=== PATIENT | female | born 1955 | race Caucasian/White ===

== ENCOUNTER → 2017-07-11 | Outpatient (CLI) | payer OTHER ==
[2017-07-11 09:20] LABS: Basophils % (A) 1 %; CH 27.9; CHCM 32.9; Eosinophils # (A) 0.1 k/uL (0-0.7); Eosinophils % (A) 3 %; HCT 40.9 % (34.0-46.0); HDW 2.63; HGB 13.8 gm/dL (11.4-16.0); Luc # (Auto) 0.09; Luc % (Auto) 2; Lymphocytes # (A) 1.1 k/uL (1.0-4.8); Lymphocytes % (A) 25 %; MCH 28.6 pg (25.0-35.0); MCHC 33.7 g/dL (31.0-37.0); MCV 85.1 fL (80.0-100.0); Mean Platelet Volume 6.8; Monocytes # (A) 0.3 k/uL (0-1.0); Monocytes % (A) 6 %; Neutrophils # (A) 2.9 k/uL (1.3-7.7); Neutrophils % (A) 64 %; RBC 4.81 m/uL (3.80-5.40); RDW 14.1 % (11.5-15.5); WBC 4.4 k/uL (3.8-10.6); WBC (Perox) 4.83
[2017-07-11 10:43] LABS: % Iron Saturation 26.4 % (20-50)
== END | disposition home or self-care (01) ==
LOC: LABWHC1 08:39
PROVIDERS: ATTEND Internal Medicine Gastroenterology
DX: D50.9 Iron deficiency anemia, unspecified (principal)
CPT/HCPCS: 36415; 82728; 83540; 83550; 85025

== ENCOUNTER → 2017-07-30 | Outpatient (CLI) | payer OTHER ==
--- NOTE | 2017-08-01 12:20 | MM ---
Reason for exam: screening (asymptomatic). Last mammogram was performed 1 year and 2 months ago. History: Patient is postmenopausal and is nulliparous. Benign core biopsy of the right breast, 1996. Physical Findings: A clinical breast exam by your physician is recommended on an annual basis and results should be correlated with mammographic findings. MG Screening Mammo w CAD Bilateral CC and MLO view(s) were taken. Prior study comparison: May 21, 2016, bilateral MG screening mammo w CAD. May 20, 2014, left breast MG work up mamm w CAD LT. The breast tissue is heterogeneously dense. This may lower the sensitivity of mammography. No suspicious abnormality. No significant changes when compared with prior studies. ASSESSMENT: Negative, BI-RAD 1 RECOMMENDATION: Routine screening mammogram of both breasts in 1 year.
== END | disposition home or self-care (01) ==
LOC: RADMAMWWP 06:51
PROVIDERS: ATTEND Family Medicine
DX: Z12.31 Encounter for screening mammogram for malignant neoplasm of breast (principal)

== ENCOUNTER → 2019-05-12 | Outpatient (CLI) | payer OTHER ==
--- NOTE | 2019-05-13 10:51 | MM ---
Reason for exam: screening (asymptomatic). Last mammogram was performed 1 year and 9 months ago. History: Patient is postmenopausal and is nulliparous. Benign core biopsy of the right breast, 1996. Physical Findings: A clinical breast exam by your physician is recommended on an annual basis and results should be correlated with mammographic findings. MG 3D Screening Mammo W/Cad Bilateral CC and MLO view(s) were taken. Prior study comparison: July 30, 2017, bilateral MG screening mammo w CAD. May 21, 2016, bilateral MG screening mammo w CAD. The breast tissue is heterogeneously dense. This may lower the sensitivity of mammography. No suspicious abnormality on the left. Stable left posterior depth upper outer quadrant focal asymmetry. Right upper outer quadrant distortion at 9 o'clock with 9mm epicenter. ASSESSMENT: Incomplete: need additional imaging evaluation, BI-RAD 0 RECOMMENDATION: Special view mammogram of the right breast. If lesion persists on supplemental views, image directed ultrasound is recommended. [facility] will attempt to contact patient to return for supplemental views and ultrasound if indicated.
== END | disposition home or self-care (01) ==
LOC: RADMAMWWP 06:50
PROVIDERS: ATTEND Family Medicine
DX: Z12.31 Encounter for screening mammogram for malignant neoplasm of breast (principal)
CPT/HCPCS: 77063; 77067

== ENCOUNTER → 2019-05-14 | Outpatient (CLI) | payer OTHER ==
--- NOTE | 2019-05-15 07:47 | MM ---
Reason for exam: additional evaluation requested from abnormal screening. Last mammogram was performed less than 1 month ago. History: Patient is postmenopausal and is nulliparous. Benign core biopsy of the right breast, 1996. Physical Findings: Nurse did not find any significant physical abnormalities on exam. MG 3D Work Up W/Cad RT Spot compression CC, spot compression MLO, and ML view(s) were taken of the right breast. Prior study comparison: May 12, 2019, bilateral MG 3d screening mammo w/cad. July 30, 2017, bilateral MG screening mammo w CAD. The breast tissue is heterogeneously dense. This may lower the sensitivity of mammography. There is chronic nodularity in the right breast. No significant new findings when compared with previous films. These results were verbally communicated with the patient and result sheet given to the patient on 05/14/19. ASSESSMENT: Probably benign, BI-RAD 3 RECOMMENDATION: Follow-up diagnostic mammogram of the right breast in 6 months.
== END | disposition home or self-care (01) ==
LOC: RADMAMWWP 14:50
PROVIDERS: ATTEND Family Medicine
DX: R92.8 Other abnormal and inconclusive findings on diagnostic imaging of breast (principal)
CPT/HCPCS: 77061; 77065

== ENCOUNTER → 2021-02-15 | Outpatient (CLI) | payer OTHER ==
--- NOTE | 2021-02-17 08:10 | BD ---
EXAMINATION TYPE: Axial Bone Density DATE OF EXAM: 02/15/2021 COMPARISON: 09/08/2002 CLINICAL HISTORY: Height: 63.5 IN Weight: 201 LBS RISK FACTORS HISTORY OF: Active: YES Diet low in dairy products/other sources of calcium: YES Postmenopausal woman: AGE 48 Lost more than 2 inches in height since high school: YES 2 1/2 INCHES MEDICATIONS: Additional Medications: CENTRUM MULTI VIT, VIT C, ZINC, SELENIUM, OMEPRAZOLE, CELEBREX, EXAM MEASUREMENTS: Bone mineral densitometry was performed using the [employer]unyu System. Bone mineral density as measured about the Lumbar spine is: ----- L1-L4(G/cm2): 1.457 T Score Values are as follows: ----- L2: 2.1 ----- L3: 2.3 ----- L4: 3.3 ----- L1-L4: 2.3 Bone mineral density has: Decreased -0.1% since study of: 09/08/2002 Bone mineral density about the R hip (g/cm2): 0.879 Bone mineral density about the L hip (g/cm2): 0.931 T Score values are as follows: -----R Neck: -1.1 -----L Neck: -0.8 -----R Total: -1.1 -----L Total: -1.3 Bone mineral density has: Decreased -29.9% since study of: 09/08/2002 IMPRESSION: Osteopenia (T Score between -2.5 and -1). There is slightly increased risk of fracture and the patient may be considered for treatment. Re-Screen 2-5 years. NOTE: T-SCORE=SD OF THE YOUNG ADULT MEAN.
--- NOTE | 2021-02-20 10:47 | MM ---
Reason for exam: screening (asymptomatic). Last mammogram was performed 1 year and 9 months ago. History: Patient is postmenopausal and is nulliparous. Benign core biopsy of the right breast, 1996. Physical Findings: A clinical breast exam by your physician is recommended on an annual basis and results should be correlated with mammographic findings. MG Screening Mammo w CAD Bilateral CC and MLO view(s) were taken. Prior study comparison: May 14, 2019, right breast MG 3d work up w/cad RT. May 12, 2019, bilateral MG 3d screening mammo w/cad. There is chronic nodularity bilaterally. Focal asymmetry left breast. No significant changes when compared with prior studies. ASSESSMENT: Benign, BI-RAD 2 RECOMMENDATION: Routine screening mammogram of both breasts in 1 year.
== END | disposition home or self-care (01) ==
LOC: RADMAMWWP 08:12
PROVIDERS: ATTEND Family Medicine
DX: M85.80 Other specified disorders of bone density and structure, unspecified site (principal)
CPT/HCPCS: 77067; 77080

== ENCOUNTER → 2021-08-30 | Outpatient (CLI) | payer OTHER | END | disposition home or self-care (01) | LOC: LABPAT 11:31 | PROVIDERS: ATTEND Orthopaedic Surgery | DX: Z01.812 Encounter for preprocedural laboratory examination (principal) | CPT/HCPCS: 80053; 81003; 85027; 85610; 85730; 86850; 86900; 86901; 87070 ==

== ENCOUNTER 2021-09-04 10:49 | Day surgery (SDC) | payer OTHER ==
[2021-08-30 12:29] LABS: HCT 39.5 % (34.0-46.0); HGB 13.2 gm/dL (11.4-16.0); MCH 29.2 pg (25.0-35.0); MCHC 33.3 g/dL (31.0-37.0); MCV 87.7 fL (80.0-100.0); Mean Platelet Volume 7.8; Platelet Count 344 k/uL (150-450); RBC 4.51 m/uL (3.80-5.40); RDW 13.4 % (11.5-15.5); WBC 6.6 k/uL (3.8-10.6)
[2021-08-30 12:34] LABS: Appearance,Urine Clear (Clear); Bilirubin,Urine Negative (Negative); Blood,Urine Negative (Negative); Color,Urine Colorless; Glucose,Urine (UA) Negative (Negative); INR 0.9 (<1.2); Ketones,Urine Negative (Negative); Leukocyte Esterase,Urine Negative (Negative); Nitrite,Urine Negative (Negative); PH, Urine 5.5 (5.0-8.0); Partial Thromboplastin Time 26.4 sec (22.0-30.0); Protein,Urine Negative (Negative); Specific Gravity,Urine 1.005 (1.001-1.035); Urobilinogen,Urine <2.0 mg/dL (<2.0)
[2021-08-30 13:01] LABS: ALT 16 U/L (4-34); AST 24 U/L (14-36); African American GFR (CKD) >90 (>60 ml/min/1.73 sqM); Albumin 4.1 g/dL (3.5-5.0); Alkaline Phosphatase 117 U/L (38-126); Anion Gap 7 mmol/L; Blood Urea Nitrogen 14 mg/dL (7-17); Calcium 10.1 mg/dL (8.4-10.2); Carbon Dioxide 27 mmol/L (22-30); Chloride 103 mmol/L (98-107); Glucose 108 mg/dL (74-99); Non-African American GFR(CKD) >90 (>60 ml/min/1.73 sqM); Sodium 137 mmol/L (137-145); Total Bilirubin 0.3 mg/dL (0.2-1.3); Total Protein 6.8 g/dL (6.3-8.2)
[2021-08-31 12:12] VITALS: BMI 32.8
[~2021-09-04 10:49] MED LIST: ACETAMINOPHEN TAB 500 MG TAB PO PRN; DEXAMETHASONE SOD PHOSPHATE 4 MG/ML 1 ML VIAL IV ONE; HYDROmorphone 0.5 MG/0.5 ML SYRINGE IVP PRN; LIDOCAINE 1% (10MG/ML) FOR IV START INTRADERMA PRN; MELOXICAM 7.5 MG TAB PO PRN; METOCLOPRAMIDE 5 MG/ML 2 ML VIAL IVP PRN; ONDANSETRON 4 MG/2 ML VIAL IVP ONE; ONDANSETRON 4 MG/2 ML VIAL IVP PRN; TRANEXAMIC ACID 1,000 MG in SODIUM CHLORIDE 0.9% 100 ML IVPB PRN
[2021-09-04] MEDS ORDERED: LACTATED RINGERS 1,000 ML IV ONE ×2 (11:12→13:51)
[2021-09-04] MEDS ORDERED: SCOPOLAMINE 1.5MG/72HR PATCH TRANSDERM ONE (12:08)
[2021-09-04] MEDS ORDERED: PHENYLEPHRINE-0.9% NACL SYG 1,000 MCG/10 ML SYRINGE ONE (12:36)
[2021-09-04] MEDS ORDERED: PROPOFOL 10 MG/ML 20 ML VIAL IV ONE (12:36)
[2021-09-04] MEDS ORDERED: TRANEXAMIC ACID 1,000 MG/10 ML VIAL ONE (12:36)
[2021-09-04] MEDS ORDERED: fentaNYL (PF) 50 MCG/ML 2 ML AMP ONE (12:36)
[2021-09-04] MEDS ORDERED: MIDAZOLAM 2 MG/2 ML VIAL ONE (12:36)
[2021-09-04] MEDS ORDERED: diphenhydrAMINE 50 MG/ML 1 ML VIAL ONE (12:36)
[2021-09-04] MEDS ORDERED: SODIUM CHLORIDE 0.9% 100 ML BAG ONE (12:36)
[2021-09-04] MEDS ORDERED: ceFAZolin 1,000 MG in SODIUM CHLORIDE 0.9% 1,000 ML IRRIGATION ONE (12:40)
--- NOTE | 2021-09-04 12:52 | P.OP ---
Date of Procedure: 09/04/21 Procedure(s) Performed: PREOPERATIVE DIAGNOSIS: Right hip severe osteoarthritis POSTOPERATIVE DIAGNOSIS: Right hip severe osteoarthritis OPERATION: Right hip total replacement arthroplasty (uncemented implantation with metal on polyethylene articulation). ANESTHESIA: Spinal ESTIMATED BLOOD LOSS: 200 ml. BUCKRAM SEWER: Brielle Parry PA-C (assistance with: patient positioning, retraction, exposure, hemostasis, leg positioning, implantation, irrigation, closure, dressing) COMPLICATIONS: None apparent. COMPONENTS IMPLANTED: Mg continuum acetabular cup with cluster holes; continuum longevity 15 elevated liner, 32 mm id; Mg VerSys Fiber Metal stem; VerSys 32 mm femoral head with +7 mm neck length extension INDICATIONS: Mrs. Wong is a 65 year old female with significant end-stage osteoarthritis involving the right hip and commensurate severe symptoms. She presents to the operating room today for total hip replacement. I have discussed the steps of the operation as well as potential risks and complications as being inclusive of, but not limited to: Leading, infection, scarring, discomfort, or vessel and/or nerve damage, need for further surgery, loosening, dislocation, wear, osteolysis, limb length inequality, fracture, blood clot, pulmonary embolism, , persistent limp, and other risks. The patient is aware these risks and wishes to proceed with surgery and has signed a consent form. PROCEDURE: After appropriate consent was obtained, the patient was taken to the operating room and placed in supine position. Spinal anesthetic was administered and after confirmation of adequate anesthesia, the patient was placed into the lateral decubitus position with the right side up. Care was taken to make sure that all pressure points were adequately padded and he was stabilized to the table with a Tomi hip positioner. The right hip was prepped and draped in th e usual aseptic fashion using a combination of ChloraPrep and alcohol. Ioban drape was used for the case and the patient received intravenous antibiotics prior to the incision. "Time out" was called, confirming patient identity, side, procedure, availability of implants and administration of antibiotics and tranexamic acid. The incision was created directly over the greater trochanter and carried slightly posteriorly for a posterior approach to the hip. The incision was then deepened down to subcutaneous tissue and fascia jyason. Fascia jayson was split in line with the incision and split proximally along the fibers of the gluteus bayron. The underlying fibers of the muscle were teased apart using finger dissection and bleeding vessels were picked up and coagulated. Retractor was then placed posteriorly consisting of a blunt Kimberly. The short external rotators and capsule were exposed using good visualization of the attachment of the external rotators to the femur was established. The short external rotators and capsule were released using electrocautery from their femoral attachments. A hockey stick shaped incision was created in the capsule. Joint fluid was evacuated and the patient's hip was able to be dislocated fairly easily. The patient's femoral head was severely arthritic with eburnated bone present and a 360 degrees hills of osteophytes. The femoral neck cut was created approximately 1 cm superior to the lesser trochanter using a reciprocating saw. The femoral head and neck fragment was removed and attention was then directed to the acetabulum. An anterior acetabular retractor was applied followed by posterior retraction of the capsule with a Meyerding retractor. This afforded good visualization into the acetabular cavity. Soft tissue was removed and residual cartilage within the acetabular vault was removed using a curette. Labrum was removed using a long-handled knife. Attention was then directed to reaming. The size 44 reamer was used first, followed by increasing increments until the final size reamer was used. Please see the implantation sheet for exact sizes used for the components. Once the final reamer had been utilized to expand the socket it was noted that there was a good supportive bone around the acetabular socket and no further reaming needed to be performed. The trial the same size as the last reamer used was then impacted into the acetabular vault and found to have good fit. The acetabular component, one size (2mm) greater than the trial was then called for. The cluster holes were placed posteriorly and the component was imp acted in a position of approximately 40 degrees abduction and 20 degrees anteversion. This matched this patient's jackson anteversion and it was noted that the cup had excellent stability without need for additional screw fixation. Attention was then directed to the acetabular liner. The anteversion and abduction angle of the component was noted to be very good. A 15 elevated liner was used and locked into position with the elevation posterior superior. Osteophytes around the posterior and inferior aspect of the acetabulum were trimmed as necessary to prevent any impingement. Attention was then directed back to the proximal femur. Retractors were placed around the proximal femur and box osteotome was used followed by canal finder and trochanteric reamer. Cylindrical reaming was performed. Progressive broaching was then performed starting with a #10 broach and progressing final size, in a position of 15 degrees anteversion. [place] anteversion was within 5 degrees of stem position. The final size broach had excellent fit and fill of the patient's metaphysis and diaphysis. Trial reduction was then performed starting with size 32 mm femoral head and various neck combination of stability, limb length equality, and soft tissue tension. Trial components were then removed. The canal was lavaged and the final size femoral stem component was impacted into position. The implant fit very well and had excellent stability. The femoral head was then impacted onto the Schultz taper. Blood and debris were removed from the acetabular component and the hip was then reduced and checked for stability, limb length and soft tissue tension. These parameters found to be satisfactory, the wound was then thoroughly irrigated with normal saline. Final hemostasis was obtained using electrocautery and IV tranexamic acid, 1 g given at the time of prepping and draping, and another 1 g given at the time of closure. Local anesthetic solution consisting of ropivacaine with epinephrine, clonidine, and ketorolac was also used throughout the case targeting the capsule, fascia, and skin. Closure of the capsule was performed meticulously using #3 Vicryl suture. Four [id number] sutures were placed in the posterior capsule along with repair of the external rotators. The fascia jayson was then repaired using combination of #3 Vicryl suture in interrupted fashion and Quill and running fashion. 2-0 Vicryl suture was used for the subcutaneous tissues and 3-0 Quill for the skin. Dermabond or Steri-Strips were then applied. The patient tolerated the procedure well. There were no complications and the wound bed was dry and there was no need for drain placement. Sterile dressing was then applied and the patient was carefully removed from the operating room table, placed on the stretcher and was taken to the recovery room in stable condition. Sponge and needle counts were correct.
[2021-09-04] MEDS: ROPIVACAINE/EPI/CLONIDINE/KET 50 ML SYRINGE MISCELLANE PRN ×2 (13:21→14:01)
[2021-09-04] MEDS ORDERED: NALOXONE 0.4 MG/ML 1 ML VIAL IV PRN (14:43)
[2021-09-04] MEDS ORDERED: HYDROmorphone 1 MG/ML 1 ML SYRINGE IVP PRN (14:43)
[2021-09-04] MEDS ORDERED: TEMAZEPAM 15 MG CAP PO PRN (14:43)
[2021-09-04] MEDS ORDERED: HYDROmorphone 0.5 MG/0.5 ML SYRINGE IVP PRN (14:43)
[2021-09-04] MEDS ORDERED: ONDANSETRON 4 MG/2 ML VIAL IVP PRN (14:43)
[2021-09-04] MEDS ORDERED: MAGNESIUM HYDROXIDE 2,400 MG/10 ML CUP PO PRN (14:43)
--- NOTE | 2021-09-04 15:43 | XR ---
Limited right hip HISTORY: Postop right hip arthroplasty Single frontal view of the right hip Patient is status post right hip arthroplasty, there is anatomic alignment. Lucency is present within the soft tissues. IMPRESSION: Orthopedic follow-up.
[2021-09-04] MEDS: LACTATED RINGERS 1,000 ML IV SCH (16:03)
[2021-09-04] MEDS: HYDROcodone/APAP 7.5-325MG 1 EACH TAB PO PRN ×2 (17:13→23:34)
[2021-09-04] MEDS ORDERED: SENNOSIDES-DOCUSATE SODIUM 1 EACH TAB PO SCH (21:00)
[2021-09-04] MEDS: ASPIRIN 81 MG PO SCH (21:18)
[2021-09-05 02:16] VITALS: TEMP 97.9
[2021-09-05] MEDS: HYDROcodone/APAP 7.5-325MG 1 EACH TAB PO PRN (06:15)
[2021-09-05 07:44] VITALS: BP 100/63; PULSE 59; RESP 16
[2021-09-05] MEDS: ASPIRIN 81 MG PO SCH (08:05)
[2021-09-05] MEDS: LACTATED RINGERS 1,000 ML IV SCH (08:25)
[2021-09-05] MEDS ORDERED: MELOXICAM 7.5 MG TAB PO SCH (09:00)
--- NOTE | 2021-09-05 09:06 | P.DS ---
Providers Expected date of discharge: 09/05/21 Attending physician: Geoffrey Bennett Consults: 09/04/21 14:43 Consult Physician Routine Consulting Provider: Ric Hernandez Consult Reason/Comments: Medical management Do you want consulting provider notified?: Yes Primary care physician: Ric Hernandez - Discharge Diagnosis(es) (1) Osteoarthritis of right hip Current Visit: Yes Status: Acute (2) S/P total hip arthroplasty Current Visit: Yes Status: Acute Hospital Course: This is a 65-year-old female with known history of degenerative arthritis of the right hip. The patient presented for evaluation as an outpatient. After discussion and consideration patient elects to proceed with total hip arthroplasty. The patient is seen preoperatively by Dr. Bennett and medically cleared for surgery by their primary care physician. Patient is admitted to [facility] on 09/04/2021 for total hip arthroplasty. The procedure is performed without complication or sequelae. The patient is doing well postoperatively. Labs and vital signs are stable on day of discharge. On day of discharge patient's hip incision is healing well. There is minimal erythema. There is no drainage noted at this time. There is minimal soft tissue swelling to the hip and thigh. Patient has full foot and ankle motion without difficulty or pain. Calf is soft and nontender to palpation. Neurovascular status to the right lower extremity is intact. Patient is discharged home in good condition. Please see med rec for accurate list of home medications. Plan - Discharge Summary Discharge Rx Participant: No New Discharge Prescriptions: New Meloxicam [Mobic] 1 - 2 tab PO DAILY PRN #60 tab PRN Reason: Pain Sennosides-Docusate Sodium [Senokot-S] 1 tab PO BID #60 tablet Aspirin [Adult Low Dose Aspirin EC] 81 mg PO BID #1 tab Gabapentin [Neurontin] 300 mg PO BID 5 Days #10 cap HYDROcodone/APAP 7.5-325MG [[place] 7.5-325] 1 - 2 tab PO Q6HR PRN #42 tab PRN Reason: Pain Ondansetron Odt [Zofran Odt] 4 mg PO Q8HR PRN #14 tab PRN Reason: Nausea Continue Omeprazole 20 mg PO DAILY Acetaminophen [Tylenol Extra Strength] 1,000 mg PO BID PRN PRN Reason: Pain Discharge Medication List Acetaminophen [Tylenol Extra Strength] 1,000 mg PO BID PRN 08/31/21 [History] Omeprazole 20 mg PO DAILY 08/31/21 [History] Aspirin [Adult Low Dose Aspirin EC] 81 mg PO BID #1 tab 09/04/21 [Rx] Gabapentin [Neurontin] 300 mg PO BID 5 Days #10 cap 09/04/21 [Rx] HYDROcodone/APAP 7.5-325MG [[place] 7.5-325] 1 - 2 tab PO Q6HR PRN #42 tab 09/04/21 [Rx] Meloxicam [Mobic] 1 - 2 tab PO DAILY PRN #60 tab 09/04/21 [Rx] Ondansetron Odt [Zofran Odt] 4 mg PO Q8HR PRN #14 tab 09/04/21 [Rx] Sennosides-Docusate Sodium [Senokot-S] 1 tab PO BID #60 tablet 09/04/21 [Rx] Follow up Appointment(s)/Referral(s): Brielle Parry, PAC [PHYSICIAN SEAMAN OFFICER] - 2 Weeks Patient Instructions/Handouts: Scopolamine (Absorbed through the skin) Activity/Diet/Wound Care/Special Instructions: Toe touch wt bearing w walker. Keep Optifoam dressing intact 7-10 days. May shower 48h post op. Discharge Disposition: HOME WITH HOME HEALTH SERVICES
[2021-09-05 09:25] LABS: Basophils # (A) 0.02 X 10*3/uL (0.00-0.10); Basophils % (A) 0.2 %; Eosinophils # (A) 0.01 X 10*3/uL (0.04-0.35); Eosinophils % (A) 0.1 %; HCT 34.8 % (37.2-46.3); HGB 11.1 g/dL (12.0-15.0); Lymphocytes # (A) 1.15 X 10*3/uL (0.90-5.00); Lymphocytes % (A) 11.6 %; MCH 28.1 pg (27.0-32.0); MCHC 31.9 g/dL (32.0-37.0); MCV 88.1 fL (80.0-97.0); Mean Platelet Volume 10.7 fL (9.5-12.2); Monocytes # (A) 0.81 X 10*3/uL (0.20-1.00); Monocytes % (A) 8.2 %; Neutrophils # (A) 7.85 X 10*3/uL (1.80-7.70); Neutrophils % (A) 79.5 %; Platelet Count 320 X 10*3/uL (140-440); RBC 3.95 X 10*6/uL (4.10-5.20); RDW 13.4 % (11.5-14.5); WBC 9.88 X 10*3/uL (4.50-10.00)
--- NOTE | 2021-09-05 17:59 | P.CON ---
Consult Note - . Consult date: 09/05/21 Assessment/Plan:: Medical Consult: Medical management HPI: 65 -year-old female s/p day one right total hip arthroplasty. She significant medical history of degenerative arthritis of the right hip, lumbar degenerative disc disease, lumbar degenerative scoliosis, lumbar spondylosis, gerd/reflux. she was seen and examined at bedside, resting with no acute signs of distress. she endorse mild discomfort over the surgical incision. she denies fever, chills, shortness of breath, chest pain, palpations, abdominal pain, nausea, vomiting, or diarrhea. Physical exam: General: cooperative, no acute signs of distress heent: Normocephalic, nontraumatic PERRLA, supple, trachea midline Respiratory: Even and unlabored respirations, lung sounds clear equal bilateral anterior-posterior Cardiac: S1 and S2 regular no murmurs no clicks no rubs noted Abdomen: Soft nontender bowel sounds active in all 4 quadrants Musculoskeletal: Equal strength in all upper and lower extremities Skin: Corry warm and dry, surgical incision dressing well intact over right lateral hip area Psychiatric: Alert and oriented 4 cooperative Assessment: Status post right hip arthroplasty GERD/reflux History of degenerative arthritis of right hip Lumbar degenerative disc disease Lumbar spondylosis GERD/reflux Plan: Review diagnostic labs and diagnostic testing Continue home medications Okay for discharge from a medical standpoint
== END 2021-09-05 11:09 | disposition home health service (06) ==
LOC: OR 10:49 → 4SSUR 15:37 → OR 09-05 11:09
PROVIDERS: ATTEND Orthopaedic Surgery
DX: M16.11 Unilateral primary osteoarthritis, right hip (principal); M19.90 Unspecified osteoarthritis, unspecified site; Z79.899 Other long term (current) drug therapy; Z88.0 Allergy status to penicillin; Z88.8 Allergy status to other drugs, medicaments and biological substances; Z20.822 Contact with and (suspected) exposure to COVID-19
CPT/HCPCS: 27130; 97161; 97535; 97165; 86900; 86901; 80053; 85025; 85027; 85610; 85730; 86850; 81003; 88300; 87070; 87635; 73501; C1776; J2250; J1200; J1100; J0690 ×3; J2405; J3010; J2370; J2704

== ENCOUNTER → 2023-10-08 | Outpatient (CLI) | payer MEDICARE ==
[2023-10-08 10:50] LABS: Basophils # (A) 0.02 X 10*3/uL (0.00-0.10); Basophils % (A) 0.4 %; Eosinophils # (A) 0.13 X 10*3/uL (0.04-0.35); Eosinophils % (A) 2.5 %; HGB 13.5 d/dL (12.0-15.0); Lymphocytes # (A) 1.13 X 10*3/uL (0.90-5.00); MCH 26.6 pg (27.0-32.0); MCHC 31.4 d/dL (32.0-37.0); MCV 84.8 FL (80.0-97.0); Mean Platelet Volume 11.1 FL (9.5-12.2); Monocytes % (A) 7.8 %; NRBC Per 100 WBC 0 X 10*3/uL (0.00-0.01); Neutrophils # (A) 3.45 X 10*3/uL (1.80-7.70); Neutrophils % (A) 67.1 %; Platelet Count 328 X 10*3/uL (140-440); RBC 5.07 X 10*6/uL (4.10-5.20); RDW 15.6 % (11.5-14.5); WBC 5.14 X 10*3/uL (4.50-10.00)
[2023-10-08 11:42] LABS: ALT 14 U/L (8-44); AST 20 U/L (13-35); Albumin 4.5 d/dL (3.8-4.9); Albumin/Globulin Ratio 1.88 Ratio (1.60-3.17); Alkaline Phosphatase 105 U/L (41-126); Blood Urea Nitrogen 12.4 mg/dL (9.0-27.0); Calcium 10.4 mg/dL (8.7-10.3); Chloride 103 mmol/L (96-109); Chol/HDL Ratio 2.42 Ratio; Globulin 2.4 d/dL (1.6-3.3); Glucose 94 mg/dL (70-110); LDL Cholesterol,Calculated 107.4 mg/dL (0.0-131.0); Sodium 141 mmol/L (135-145); T4, Free (Free Thyroxine) 1.43 ng/dL (0.80-1.80); Total Bilirubin 0.3 mg/dL (0.3-1.2); Total Protein 6.9 d/dL (6.2-8.2); VLDL Calculation 15.98 mg/dL (5.00-40.00)
== END | disposition home or self-care (01) ==
LOC: LABWHC1 07:13
PROVIDERS: ATTEND Family Medicine
DX: E78.5 Hyperlipidemia, unspecified (principal)
CPT/HCPCS: 36415; 80053; 80061; 84439; 84443; 84481; 85025

== ENCOUNTER → 2024-04-17 | Outpatient (CLI) | payer MEDICARE ==
--- NOTE | 2024-04-17 14:52 | P.GSCN ---
History of Present Illness Consult date: 04/17/24 Reason for Consult: abnormal right breast radiograph Requesting physician: Ric Hernandez History of present illness: Jose David is a 68 year old female seen in consultation for DR. Ric Hernandez regarding a radiographic abnormality in the right breast. She had a bilateral mammogram on 12-19-23 which led to an ultrasound of the right breast on 12-30-23, and on 02-28-24 diagnostic right breast mammogram BIRAD 3. She is recommended to have bilateral mammogram in 6 months. She is status post right breast biopsy in 1996 which was benign. She does not feel any new lumps masses or nodules of concern in either breast. She has not had any recent trauma or infection in the breast. She is not complaining of any nipple discharge or skin changes. Caffeine: diet coke several day nicotine: none chocolate: occasional BCP: none hormones: none Family HIstory: father: nonhodgkins lymphoma paternal grandfather: lungs cancer Hormonal History: menarche: 13 G0 menopause: 48 hormones: none Surgical history: Bilateral knee replacement Right hip replacement Right shoulder surgery Right breast biopsy Medical history: Negative Social history: Nicotine: Negative Alcohol: Negative Drugs: Negative Review of Systems - Constitutional Reports sweats, Denies fever, Denies weight loss - EENT Eyes: denies blurred vision Ears: deny: decreased hearing, tinnitus Ears, nose, mouth and throat: Denies dysphagia - Breasts bilateral: as per HPI - Cardiovascular Denies chest pain, Denies shortness of breath - Respiratory Denies cough, Denies 7 - Gastrointestinal Reports as per HPI - Genitourinary Genitourinary: Denies dysuria, Denies hematuria Menstruation: Reports postmenopausal - Musculoskeletal Reports as per HPI - Integumentary Denies rash, Denies unusual bruising - Neurological Denies headaches, Denies syncope - Psychiatric Reports as per HPI - Endocrine Reports as per HPI - Hematologic/Lymphatic Reports as per HPI - Allergic/Immunologic Reports seasonal allergies Past Medical History Past Medical History: GERD/Reflux, Osteoarthritis (OA) History of Any Multi-Drug Resistant Organisms: None Reported Past Surgical History: Joint Replacement, Orthopedic Surgery Additional Past Surgical History / Comment(s): RT TKA. LT KNEE SX. RT ROTATOR CUFF REPAIR. COLONOSCOPY Past Anesthesia/Blood Transfusion Reactions: Previous Problems w/ Anesthesia, Postoperative Nausea & Vomiting (PONV) Additional Past Anesthesia/Blood Transfusion Reaction / Comm: SLOW TO WAKE UP FROM ANESTHESIA Past Psychological History: No Psychological Hx Reported Smoking Status: Never smoker Past Alcohol Use History: None Reported Past Drug Use History: None Reported - Past Family History Father Family Medical History: Cancer Medications and Allergies Home Medications Medication Instructions Recorded Confirmed Type Acetaminophen [Tylenol Extra 1,000 mg PO BID PRN 08/31/21 08/31/21 History Strength] Omeprazole 20 mg PO DAILY 08/31/21 08/31/21 History Aspirin [Adult Low Dose Aspirin EC] 81 mg PO BID #1 tab 09/04/21 Rx Gabapentin [Neurontin] 300 mg PO BID 5 Days #10 cap 09/04/21 Rx HYDROcodone/APAP 7.5-325MG [[place] 1 - 2 tab PO Q6HR PRN #42 tab 09/04/21 Rx 7.5-325] Meloxicam [Mobic] 1 - 2 tab PO DAILY PRN #60 tab 09/04/21 Rx Ondansetron Odt [Zofran Odt] 4 mg PO Q8HR PRN #14 tab 09/04/21 Rx Sennosides-Docusate Sodium 1 tab PO BID #60 tablet 09/04/21 Rx [Senokot-S] Allergies Allergy/AdvReac Type Severity Reaction Status Date / Time Penicillins Allergy Rash/Hives Verified 08/31/21 12:03 Surgical - Exam - General no distress - Eyes normal ocular movement - Neck trachea midline - Respiratory normal respiratory effort, clear to auscultation - Cardiovascular Rhythm: regular Heart Sounds: normal: S1, S2 - Integumentary normal turgor - Neurologic no disoriented, no combative - Musculoskeletal normal gait - Psychiatric oriented to time, oriented to person, oriented to place, speech is normal, memory intact Breast Exam: BRA: 44DD Inspection: Bilateral grade 3 ptosis Palpation: Right breast: Multi positional exam fibrocystic changes no dominant masses or nodules of concern Right axilla: No adenopathy of concern Left breast: Multi positional exam no dominant masses or nodules of concern Left axilla: No adenopathy of concern There is a dark nevus on the right breast in the upper inner aspect of the breast Results After review of the radiographs recommend repeat bilateral mammogram in 6 months Assessment and Plan Assessment: Impression: Fibrocystic breast changes Macromastia with bilateral shoulder notching and back pain Dark nevus right breast upper inner aspect Abnormal right breast mammogram Plan: Repeat bilateral mammogram in 6 months with appointment at that time Excision of dark nevus right breast in the office Patient is going to consider bilateral breast reduction secondary to the macromastia CC: Dr. Ric Hernandez
[2024-04-17 15:18] VITALS: BP 155/88; PULSE 78; RESP 17; TEMP 97.9
== END ==
LOC: WWCWWP 13:47
PROVIDERS: ATTEND Surgery
DX: R92.8 Other abnormal and inconclusive findings on diagnostic imaging of breast (principal); N60.11 Diffuse cystic mastopathy of right breast; N62 Hypertrophy of breast; D22.5 Melanocytic nevi of trunk; M54.9 Dorsalgia, unspecified; Z88.0 Allergy status to penicillin

== ENCOUNTER → 2024-04-17 | Outpatient (CLI) | payer MEDICARE ==
--- NOTE | 2024-04-17 20:38 | USB ---
Reason for Exam: Additional evaluation requested from prior study. Patient History: Menarche at age 13. Patient has no children. Postmenopausal. 1996, Benign Core Biopsy on the right side. Risk Values: Tashia 5 year model risk: 2.2%. NCI Lifetime model risk: 7.6%. Technique: Method: Whole Breast Handheld. Prior Study Comparison: 05/14/2019 Right Diagnostic Mammogram, [facility]. 02/15/2021 Bilateral Screening Mammogram, [facility]. 04/23/2022 Bilateral MG screening mammo w CAD, [facility]. Findings: The whole breast of the right breast, the axilla of the right breast and the retroareolar of the right breast were scanned. A complete US of all four quadrants of the breast common axilla, and retro-areolar region were reviewed. At the 2:00 position, 12 cm from the nipple, there is a hypoechoic, slightly irregular shadowing lesion measuring 7 x 6 x 5 mm. This is suspicious and tissue sampling is recommended. No other solid or cystic lesion or axillary lymphadenopathy. Overall Assessment: Suspicious, BI-RAD 4 Management: Ultrasound Core Biopsy of the right breast. 2:00, mammographic correlate Results were given to the patient verbally at the time of exam. Electronically signed and approved by: Lauro Calloway M.D. Radiologist
== END | disposition home or self-care (01) ==
LOC: RADUSWWP 15:08
PROVIDERS: ATTEND Surgery
DX: R92.8 Other abnormal and inconclusive findings on diagnostic imaging of breast (principal); Z78.0 Asymptomatic menopausal state

== ENCOUNTER → 2024-04-29 | Day surgery (SDC) | payer MEDICARE ==
--- NOTE | 2024-05-04 13:43 | MM ---
Reason for Exam: Post Procedure Mammogram. Last mammogram was performed 2 year(s) and 0 month(s) ago. Patient History: Menarche at age 13. Patient has no children. Postmenopausal. 1996, Benign Core Biopsy on the right side. Risk Values: Tashia 5 year model risk: 2.2%. NCI Lifetime model risk: 7.6%. Prior Study Comparison: 05/14/2019 Right Diagnostic Mammogram, [facility]. 02/15/2021 Bilateral Screening Mammogram, [facility]. 04/23/2022 Bilateral MG screening mammo w CAD, [facility]. Tissue Density: Right: The breasts are heterogeneously dense, which may obscure small masses. Pathology Description: Location: 2 o'clock. Marker Left Behind. Needle Type: Mammotome Cores: 4 Skin Nicks: 1 Gauge: 13 The procedure of ultrasound guided core biopsy was explained to the patient. Benefits, alternatives, and risks were discussed. An informed consent was then obtained. A timeout was performed. The patient was placed in supine positioning for imaging and for the procedure. The overlying skin was prepped and draped in usual sterile fashion. Lidocaine was used as anesthetic into the skin and subcutaneous tissue up to area of concern in the right breast. A small skin stephanie was made with surgical scalpel. Under ultrasound guidance, a 12-gauge vacuum assisted biopsy gun device was used to obtain 4 core samples. A biopsy clip was left in lesion. Hydromark coil core marker was placed. The patient tolerated the procedure well without any immediate complication. The patient was kept in the radiology department for short stay after the procedure and then discharged home in stable condition. Postprocedure mammogram: The patient was transferred to mammography for physician ordered post procedure mammogram for clip placement verification. Core marker is within the upper inner aspect right breast Impression: Successful ultrasound guided core biopsy of area of concern in the right breast, full pathology results to follow. Recommendations: 1. Recommendations are pending pathology results. Pathology Results: Result: Benign, Fibroadenoma. RIGHT BREAST, TWO O'CLOCK, ULTRASOUND GUIDED NEEDLE CORE BIOPSY: Fibroadenoma. Overall Assessment: Benign Assessment: MG diagnostic mammo RT wo CAD - Right: Benign, BI-RAD 2. Management: Diagnostic Mammogram of the right breast in 6 months. Electronically signed and approved by: Danish Gay D.O. Radiologis
== END ==
LOC: RADUSWWP 07:40
PROVIDERS: ATTEND Surgery
DX: D24.1 Benign neoplasm of right breast (principal); R92.8 Other abnormal and inconclusive findings on diagnostic imaging of breast; Z78.0 Asymptomatic menopausal state
CPT/HCPCS: 88305; 77065; 19083; A4648

== ENCOUNTER → 2024-05-14 | Outpatient (CLI) | payer MEDICARE ==
--- NOTE | 2024-05-14 14:56 | P.PN ---
Subjective Progress Note Date: 05/14/24 Principal diagnosis: fibroadenoma Jose David is a 68 year old female status post an ultrasound area of concern on 04-29-24 in the right breast. Pathology was consistent with a fibroadenoma felt to be benign concordant. She tolerated the porcedure without difficulty. Objective - Constitutional General appearance: Present: cooperative - EENT Eyes: Present: EOMI ENT: Present: hearing grossly normal - Neck Neck: Present: normal ROM - Respiratory Respiratory: bilateral: CTA - Cardiovascular Heart sounds: normal: S1, S2 - Psychiatric Psychiatric: Present: A&O x's 3, appropriate affect, intact judgment & insight - Additional findings Additional findings: Biopsy site right breast clean and dry, no evidence of hematoma or infection Assessment and Plan Assessment: Impression: right breast radiographic abnormality biopsy as per ultrasound-guided core biopsy benign concordant fibroadenoma On right breast diagnostic mammogram from 04-29-2024 her Tashia 5-year risk is 2.2% we have discussed chemoprophylaxis and at this time she has declined Plan: Repeat right breast mammogram and ultrasound in 6 months exam at that time If patient notes anything of concern she will follow-up sooner. CC: Dr. Ric Hernandez
[2024-05-14 15:01] VITALS: BP 151/78; PULSE 92; RESP 17; TEMP 98.1
== END ==
LOC: WWCWWP 14:39
PROVIDERS: ATTEND Surgery
DX: R92.8 Other abnormal and inconclusive findings on diagnostic imaging of breast (principal); D24.1 Benign neoplasm of right breast; Z88.0 Allergy status to penicillin

== ENCOUNTER → 2024-10-05 | Outpatient (CLI) | payer MEDICARE ==
--- NOTE | 2024-10-05 08:25 | MM ---
Reason for Exam: Follow-up at short interval from prior study. Last mammogram was performed 2 year(s) and 6 month(s) ago. Patient History: Menarche at age 13. Patient has no children. Postmenopausal. 04/29/2024, Benign US biopsy breast VAD RT on the right side. 1996, Benign Core Biopsy on the right side. Risk Values: Tashia 5 year model risk: 2.8%. NCI Lifetime model risk: 9.5%. Prior Study Comparison: 02/15/2021 Bilateral Screening Mammogram, [facility]. 04/23/2022 Bilateral MG screening mammo w CAD, [facility]. 04/29/2024 Right MG diagnostic mammo RT wo CAD, [facility]. Tissue Density: Right: The breasts are heterogeneously dense, which may obscure small masses. Findings: Analyzed By CAD. Pattern is stable there is chronic nodularity within the right breast. This is unchanged in appearance. Core marker is within one of the chronic nodules. No suspicious groups of microcalcifications, spiculated or lobular masses, architectural distortion or other secondary signs of malignancy are mammographically apparent. Overall Assessment: Benign, BI-RAD 2 Management: Screening Mammogram of both breasts in 3 months. A negative mammogram report should not preclude additional follow up of suspicious palpable abnormalities. Patient should continue monthly self breast exam. A clinical breast exam by your physician is recommended on an annual basis and results should be correlated with mammographic findings. Note on Tashia scores and lifetime risk: 1. A Tashia score greater than 3% is considered moderate risk. If this is the case, consider specialist referral to assess eligibility for a risk reducing agent. 2. If overall lifetime risk for the development of breast cancer is 20% or higher, the patient may qualify for future screening with alternating mammogram and breast MRI. [facility], , 10/05/2024 7:51 AM. Electronically signed and approved by: Danish Gay D.O. Radiologis
== END | disposition home or self-care (01) ==
LOC: RADMAMWWP 07:29
PROVIDERS: ATTEND Surgery
DX: R92.8 Other abnormal and inconclusive findings on diagnostic imaging of breast (principal); R92.333 Mammographic heterogeneous density, bilateral breasts; Z78.0 Asymptomatic menopausal state
CPT/HCPCS: 77065; G0279; 77061

== ENCOUNTER → 2024-10-09 | Outpatient (CLI) | payer MEDICARE ==
[2024-10-09 10:06] VITALS: BP 143/88; PULSE 71; RESP 17; TEMP 97.6
--- NOTE | 2024-10-09 10:30 | P.PN ---
Subjective Progress Note Date: 10/09/24 Principal diagnosis: fibroadenoma right breast 10-09-24 History of Present Illness abnormal right breast radiograph Requesting physician: Ric Hernandez History of present illness: Jose David is a 68 year old female seen in consultation for DR. Ric Hernandez on 04-17-24 regarding a radiographic abnormality in the right breast. She had a bilateral mammogram on 12-19-23 which led to an ultrasound of the right breast on 12-30-23, and on 02-28-24 diagnostic right breast mammogram BIRAD 3. She is status post right breast biopsy in 1996 which was benign. She does not feel any new lumps masses or nodules of concern in either breast. She has not had any recent trauma or infection in the breast. She is not complaining of any nipple discharge or skin changes. Core biopsy right breast on 04-29-24 + fibroadenoma right breast mammogram repeat 10-05-24 BIRAD 2 needs left breast mammogram in December 2024 Caffeine: diet coke several day nicotine: none chocolate: occasional BCP: none hormones: none Family HIstory: father: nonhodgkins lymphoma paternal grandfather: lungs cancer Hormonal History: menarche: 13 G0 menopause: 48 hormones: none Surgical history: Bilateral knee replacement Right hip replacement Right shoulder surgery Right breast biopsy Medical history: Negative Social history: Nicotine: Negative Alcohol: Negative Drugs: Negative Review of Systems - Constitutional Reports sweats, Denies fever, Denies weight loss - EENT Eyes: denies blurred vision Ears: deny: decreased hearing, tinnitus Ears, nose, mouth and throat: Denies dysphagia - Breasts bilateral: as per HPI - Cardiovascular Denies chest pain, Denies shortness of breath - Respiratory Denies cough, Denies 7 - Gastrointestinal Reports as per HPI - Genitourinary Genitourinary: Denies dysuria, Denies hematuria Menstruation: Reports postmenopausal - Musculoskeletal Reports as per HPI - Integumentary Denies rash, Denies unusual bruising - Neurological Denies headaches, Denies syncope - Psychiatric Reports as per HPI - Endocrine Reports as per HPI - Hematologic/Lymphatic Reports as per HPI - Allergic/Immunologic Reports seasonal allergies Past Medical History Past Medical History: GERD/Reflux, Osteoarthritis (OA) History of Any Multi-Drug Resistant Organisms: None Reported Past Surgical History: Joint Replacement, Orthopedic Surgery Additional Past Surgical History / Comment(s): RT TKA. LT KNEE SX. RT ROTATOR CUFF REPAIR. COLONOSCOPY Past Anesthesia/Blood Transfusion Reactions: Previous Problems w/ Anesthesia, Postoperative Nausea & Vomiting (PONV) Additional Past Anesthesia/Blood Transfusion Reaction / Comm: SLOW TO WAKE UP FROM ANESTHESIA Past Psychological History: No Psychological Hx Reported Smoking Status: Never smoker Past Alcohol Use History: None Reported Past Drug Use History: None Reported - Past Family History Father Family Medical History: Cancer Medications and Allergies Home Medications Medication Instructions Recorded Confirmed Type Acetaminophen [Tylenol Extra 1,000 mg PO BID PRN 08/31/21 08/31/21 History Strength] Omeprazole 20 mg PO DAILY 08/31/21 08/31/21 History Aspirin [Adult Low Dose Aspirin EC] 81 mg PO BID #1 tab 09/04/21 Rx Gabapentin [Neurontin] 300 mg PO BID 5 Days #10 cap 09/04/21 Rx HYDROcodone/APAP 7.5-325MG [[place] 1 - 2 tab PO Q6HR PRN #42 tab 09/04/21 Rx 7.5-325] Meloxicam [Mobic] 1 - 2 tab PO DAILY PRN #60 tab 09/04/21 Rx Ondansetron Odt [Zofran Odt] 4 mg PO Q8HR PRN #14 tab 09/04/21 Rx Sennosides-Docusate Sodium 1 tab PO BID #60 tablet 09/04/21 Rx [Senokot-S] Allergies Allergy/AdvReac Type Severity Reaction Status Date / Time Penicillins Allergy Rash/Hives Verified 08/31/21 12:03 Objective - Vital Signs Vital signs: Vital Signs Temp 97.6 F 10/09/24 10:03 Pulse 71 10/09/24 10:03 Resp 17 10/09/24 10:03 BP 143/88 10/09/24 10:03 Pulse Ox 96 10/09/24 10:03 FiO2 Intake & Output 10/08/24 10/09/24 10/09/24 18:59 06:59 18:59 Weight 91.626 kg - Constitutional General appearance: Present: cooperative - EENT Eyes: Present: EOMI ENT: Present: hearing grossly normal - Neck Neck: Present: normal ROM - Respiratory Respiratory: bilateral: CTA - Cardiovascular Rhythm: regular Heart sounds: normal: S1, S2 - Integumentary Integumentary: Present: normal - Musculoskeletal Musculoskeletal: Present: gait normal - Psychiatric Psychiatric: Present: A&O x's 3, appropriate affect, intact judgment & insight - Additional findings Additional findings: Breast Exam: BRA: 44DD Inspection: Bilateral grade 3 ptosis, bilateral shoulder notching Palpation: Right breast: Multi positional exam fibrocystic changes no dominant masses or nodules of concern Right axilla: No adenopathy of concern Left breast: Multi positional exam no dominant masses or nodules of concern Left axilla: No adenopathy of concern There is a dark nevus on the right breast in the upper inner aspect of the breast Assessment and Plan Assessment: Impression: Fibrocystic breast changes Macromastia with bilateral shoulder notching and back pain Dark nevus right breast upper inner aspect Abnormal right breast mammogram/ultrasound core biopsy on 04-29-24 fibroadenoma right breast mammogram on 10-05-24 BIRAD 2 Plan: Excision of dark nevus right breast in the office as soon as possible Patient is going to consider bilateral breast reduction secondary to the macromastia left breast mammogram 2024 with appointment Appointment with plastic surgery regarding breast reduction CC: Dr. Ric Hernandez
== END ==
LOC: WWCWWP 09:09
PROVIDERS: ATTEND Surgery
DX: R92.8 Other abnormal and inconclusive findings on diagnostic imaging of breast (principal); D24.1 Benign neoplasm of right breast; N60.11 Diffuse cystic mastopathy of right breast; N62 Hypertrophy of breast; M54.9 Dorsalgia, unspecified; Z88.0 Allergy status to penicillin

== ENCOUNTER → 2024-11-09 | Outpatient (CLI) | payer MEDICARE ==
--- NOTE | 2024-11-09 08:22 | US ---
EXAMINATION TYPE: US Aorta Screening DATE OF EXAM: 11/09/2024 COMPARISON: NONE CLINICAL INDICATION: Female, 68 years old with history of Z13.6 Screening for cardiovascular disorder s; Screening TECHNIQUE: Multiple sonographic images of the abdominal aorta are obtained with grayscale and color D oppler imaging. FINDINGS: EXAM MEASUREMENTS: Abdominal Aorta: Proximal: 2.1x2.3cm Mid: 1.8x1.8cm Distal: 1.7x1.5cm Bifurcation: Right Iliac: 1.3x1.4cm Left Iliac: 1.1x1.1cm ORGANIZATION DEVELOPMENT CONSULTANT NOTES: no evidence for AAA. Exam limited by bowel gas and body habitus IMPRESSION: No evidence for aortic aneurysm. [facility], , 11/09/2024 8:20 AM
== END | disposition home or self-care (01) ==
LOC: RADUSWWP 07:06
PROVIDERS: ATTEND Family Medicine
DX: Z13.6 Encounter for screening for cardiovascular disorders (principal)
CPT/HCPCS: 76706

== ENCOUNTER → 2024-12-22 | Outpatient (CLI) | payer BC | END | disposition home or self-care (01) | LOC: RADMAMWWP 07:48 | PROVIDERS: ATTEND Surgery | DX: Z53.9 Procedure and treatment not carried out, unspecified reason (principal) ==

== ENCOUNTER → 2025-01-07 | Outpatient (CLI) | payer MEDICARE ==
--- NOTE | 2025-01-07 09:26 | P.PN ---
Subjective Progress Note Date: 01/07/25 fibroadenoma right breast/fibrocystic breast changes History of Present Illness History of present illness: Jose David is a 68 year old female seen in consultation for DR. Ric Hernandez on 04-17-24 regarding a radiographic abnormality in the right breast. She had a bilateral mammogram on 12-19-23 which led to an ultrasound of the right breast on 12-30-23, and on 02-28-24 diagnostic right breast mammogram BIRAD 3. She is status post right breast biopsy in 1996 which was benign. She does not feel any new lumps masses or nodules of concern in either breast. She has not had any recent trauma or infection in the breast. She is not complaining of any nipple discharge or skin changes. She is not complaining of any new lumps masses or nodules of concern in either breast. We have a nevus removed from her right breast but that has not yet been done and she is now noted to have nevi in both breast in the upper inner quadrant of both breast. Additionally she had considered seeing a plastic surgeon regarding reduction mammoplasty secondary to the weight of her breast and back pain and would still like to do this. Core biopsy right breast on 04-29-24 + fibroadenoma right breast mammogram repeat 10-05-24 BIRAD 2 Bilateral mammogram on 12-29-24 BIRAD 2 Caffeine: diet coke several day nicotine: none chocolate: occasional BCP: none hormones: none Family HIstory: father: nonhodgkins lymphoma paternal grandfather: lungs cancer Hormonal History: menarche: 13 G0 menopause: 48 hormones: none Surgical history: Bilateral knee replacement Right hip replacement Right shoulder surgery Right breast biopsy Medical history: Negative Social history: Nicotine: Negative Alcohol: Negative Drugs: Negative Review of Systems - Constitutional Reports sweats, Denies fever, Denies weight loss - EENT Eyes: denies blurred vision Ears: deny: decreased hearing, tinnitus Ears, nose, mouth and throat: Denies dysphagia - Breasts bilateral: as per HPI - Cardiovascular Denies chest pain, Denies shortness of breath - Respiratory Denies cough - Gastrointestinal Reports as per HPI - Genitourinary Genitourinary: Denies dysuria, Denies hematuria Menstruation: Reports postmenopausal - Musculoskeletal Reports as per HPI - Integumentary Denies rash, Denies unusual bruising - Neurological Denies headaches, Denies syncope - Psychiatric Reports as per HPI - Endocrine Reports as per HPI - Hematologic/Lymphatic Reports as per HPI - Allergic/Immunologic Reports seasonal allergies Past Medical History Past Medical History: GERD/Reflux, Osteoarthritis (OA) History of Any Multi-Drug Resistant Organisms: None Reported Past Surgical History: Joint Replacement, Orthopedic Surgery Additional Past Surgical History / Comment(s): RT TKA. LT KNEE SX. RT ROTATOR CUFF REPAIR. COLONOSCOPY Past Anesthesia/Blood Transfusion Reactions: Previous Problems w/ Anesthesia, Postoperative Nausea & Vomiting (PONV) Additional Past Anesthesia/Blood Transfusion Reaction / Comm: SLOW TO WAKE UP FROM ANESTHESIA Past Psychological History: No Psychological Hx Reported Smoking Status: Never smoker Past Alcohol Use History: None Reported Past Drug Use History: None Reported - Past Family History Father Family Medical History: Cancer Medications and Allergies Home Medications Medication Instructions Recorded Confirmed Type Acetaminophen [Tylenol Extra 1,000 mg PO BID PRN 08/31/21 08/31/21 History Strength] Omeprazole 20 mg PO DAILY 08/31/21 08/31/21 History Aspirin [Adult Low Dose Aspirin EC] 81 mg PO BID #1 tab 09/04/21 Rx Gabapentin [Neurontin] 300 mg PO BID 5 Days #10 cap 09/04/21 Rx HYDROcodone/APAP 7.5-325MG [[place] 1 - 2 tab PO Q6HR PRN #42 tab 09/04/21 Rx 7.5-325] Meloxicam [Mobic] 1 - 2 tab PO DAILY PRN #60 tab 09/04/21 Rx Ondansetron Odt [Zofran Odt] 4 mg PO Q8HR PRN #14 tab 09/04/21 Rx Sennosides-Docusate Sodium 1 tab PO BID #60 tablet 09/04/21 Rx [Senokot-S] Allergies Allergy/AdvReac Type Severity Reaction Status Date / Time Penicillins Allergy Rash/Hives Verified 08/31/21 12:03 Objective - Constitutional General appearance: Present: cooperative - EENT Eyes: Present: EOMI ENT: Present: hearing grossly normal - Neck Neck: Present: normal ROM - Respiratory Respiratory: bilateral: CTA - Cardiovascular Rhythm: regular Heart sounds: normal: S1, S2 - Integumentary Integumentary: Present: normal turgor - Musculoskeletal Musculoskeletal: Present: gait normal - Psychiatric Psychiatric: Present: A&O x's 3, appropriate affect, intact judgment & insight - Additional findings Additional findings: Breast Exam: BRA: 44DD Inspection: Bilateral grade 3 ptosis, bilateral shoulder notching Palpation: Right breast: Multi positional exam fibrocystic changes no dominant masses or nodules of concern Right axilla: No adenopathy of concern Left breast: Multi positional exam no dominant masses or nodules of concern Left axilla: No adenopathy of concern There is a dark nevus on the right breast in the upper inner aspect of the breast, is on the left breast on the upper inner quadrant of the breast as well. Fungal infection under both breast. Assessment and Plan Assessment: Impression: Fibrocystic breast changes Macromastia with bilateral shoulder notching and back pain Dark nevus right breast upper inner aspect; dark nevus left breast upper inner aspect Abnormal right breast mammogram/ultrasound core biopsy on 04-29-24 fibroadenoma, stable bilateral mammogram on 12-29-24 BIRAD 2 Plan: Excision of dark nevus bilateral breast in the office Patient is going to consider bilateral breast reduction secondary to the macromastia, appointment with plastic surgery bilateral mammogram in 1 year Appointment with plastic surgery regarding breast reduction CC: Dr. Ric Hernandez
[2025-01-07 10:08] VITALS: BP 136/83; PULSE 68; RESP 17; TEMP 97.8
== END ==
LOC: WWCWWP 08:44
PROVIDERS: ATTEND Surgery
DX: N60.19 Diffuse cystic mastopathy of unspecified breast (principal); N62 Hypertrophy of breast; N63.12 Unspecified lump in the right breast, upper inner quadrant; N63.22 Unspecified lump in the left breast, upper inner quadrant; Z88.0 Allergy status to penicillin

== ENCOUNTER → 2025-04-08 | Outpatient (CLI) | payer MEDICARE ==
[2025-04-08 07:59] VITALS: BP 151/78; PULSE 91; RESP 16; TEMP 98.6
--- NOTE | 2025-04-08 08:14 | P.PN ---
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 Ric Hernandez on 04-17-24 regarding a radiographic abnormality in the right breast. She had a bilateral mammogram on 12-19-23 which led to an ultrasound of the right breast on 12-30-23, and on 02-28-24 diagnostic right breast mammogram BIRAD 3. She is status post right breast biopsy in 1996 which was benign. She does not feel any new lumps masses or nodules of concern in either breast. She has not had any recent trauma or infection in the breast. She is not complaining of any nipple discharge or skin changes. She is not complaining of any new lumps masses or nodules of concern in either breast. We have a nevus removed from her right breast but that has not yet been done and she is now noted to have nevi in both breast in the upper inner quadrant of both breast. Additionally she had considered seeing a plastic surgeon regarding reduction mammoplasty secondary to the weight of her breast and back pain and would still like to do this. Core biopsy right breast on 04-29-24 + fibroadenoma right breast mammogram repeat 10-05-24 BIRAD 2 Bilateral mammogram on 12-29-24 BIRAD 2 Ultrasound of the right breast on 01 21 25 revealed that the area of concern was 6 x 6 x 5 mm versus 9 mm prior to biopsy this is a biopsy-proven fibroadenoma. Diagnostic mammogram of both breast in 11 months was recommended. Caffeine: diet coke several day nicotine: none chocolate: occasional BCP: none hormones: none Family HIstory: father: nonhodgkins lymphoma paternal grandfather: lungs cancer Hormonal History: menarche: 13 G0 menopause: 48 hormones: none Surgical history: Bilateral knee replacement Right hip replacement Right shoulder surgery Right breast biopsy Medical history: Negative Social history: Nicotine: Negative Alcohol: Negative Drugs: Negative Review of Systems - Constitutional Reports sweats, Denies fever, Denies weight loss - EENT Eyes: denies blurred vision Ears: deny: decreased hearing, tinnitus Ears, nose, mouth and throat: Denies dysphagia - Breasts bilateral: as per HPI - Cardiovascular Denies chest pain, Denies shortness of breath - Respiratory Denies cough - Gastrointestinal Reports as per HPI - Genitourinary Genitourinary: Denies dysuria, Denies hematuria Menstruation: Reports postmenopausal - Musculoskeletal Reports as per HPI - Integumentary Denies rash, Denies unusual bruising - Neurological Denies headaches, Denies syncope - Psychiatric Reports as per HPI - Endocrine Reports as per HPI - Hematologic/Lymphatic Reports as per HPI - Allergic/Immunologic Reports seasonal allergies Past Medical History Past Medical History: GERD/Reflux, Osteoarthritis (OA) History of Any Multi-Drug Resistant Organisms: None Reported Past Surgical History: Joint Replacement, Orthopedic Surgery Additional Past Surgical History / Comment(s): RT TKA. LT KNEE SX. RT ROTATOR CUFF REPAIR. COLONOSCOPY Past Anesthesia/Blood Transfusion Reactions: Previous Problems w/ Anesthesia, Postoperative Nausea & Vomiting (PONV) Additional Past Anesthesia/Blood Transfusion Reaction / Comm: SLOW TO WAKE UP FROM ANESTHESIA Past Psychological History: No Psychological Hx Reported Smoking Status: Never smoker Past Alcohol Use History: None Reported Past Drug Use History: None Reported - Past Family History Father Family Medical History: Cancer Medications and Allergies Home Medications Medication Instructions Recorded Confirmed Type Acetaminophen [Tylenol Extra 1,000 mg PO BID PRN 08/31/21 08/31/21 History Strength] Omeprazole 20 mg PO DAILY 08/31/21 08/31/21 History Aspirin [Adult Low Dose Aspirin EC] 81 mg PO BID #1 tab 09/04/21 Rx Gabapentin [Neurontin] 300 mg PO BID 5 Days #10 cap 09/04/21 Rx HYDROcodone/APAP 7.5-325MG [[place] 1 - 2 tab PO Q6HR PRN #42 tab 09/04/21 Rx 7.5-325] Meloxicam [Mobic] 1 - 2 tab PO DAILY PRN #60 tab 09/04/21 Rx Ondansetron Odt [Zofran Odt] 4 mg PO Q8HR PRN #14 tab 09/04/21 Rx Sennosides-Docusate Sodium 1 tab PO BID #60 tablet 09/04/21 Rx [Senokot-S] Allergies Allergy/AdvReac Type Severity Reaction Status Date / Time Penicillins Allergy Rash/Hives Verified 08/31/21 12:03 Objective - Constitutional General appearance: Present: cooperative - EENT Eyes: Present: EOMI ENT: Present: hearing grossly normal - Neck Neck: Present: normal ROM - Respiratory Respiratory: bilateral: CTA - Cardiovascular Rhythm: regular Heart sounds: normal: S1, S2 - Integumentary Integumentary: Present: normal turgor - Musculoskeletal Musculoskeletal: Present: gait normal - Psychiatric Psychiatric: Present: A&O x's 3, appropriate affect, intact judgment & insight - Additional findings Additional findings: Breast Exam: BRA: 44DD Inspection: Bilateral grade 3 ptosis, bilateral shoulder notching Palpation: Right breast: Multi positional exam fibrocystic changes no dominant masses or nodules of concern Right axilla: No adenopathy of concern Left breast: Multi positional exam no dominant masses or nodules of concern Left axilla: No adenopathy of concern There is a dark nevus on the right breast in the upper inner aspect of the breast, and on the left breast on the upper inner quadrant of the breast as well. Fungal infection under both breast. Assessment and Plan Assessment: Impression: Fibrocystic breast changes Macromastia with bilateral shoulder notching and back pain Dark nevus right breast upper inner aspect; dark nevus left breast upper inner aspect Abnormal right breast mammogram/ultrasound core biopsy on 04-29-24 fibroadenoma, stable bilateral mammogram on 12-29-24 BIRAD 2; 8 ultrasound right breast 2 20 25 area of prior fibroadenoma 6 x 6 x 5 mm versus 9 mm prior to biopsy. This appears to be stable Plan: Excision of dark nevus bilateral breast in the office Patient is going to consider bilateral breast reduction secondary to the macromastia, appointment with plastic surgery bilateral mammogram in 1 year; December 2025 Appointment with plastic surgery regarding breast reduction CC: Dr. Ric Hernandez Additional CC's: Ric Hernandez Objective - Vital Signs Vital signs: Vital Signs Temp 98.6 F 04/08/25 07:57 Pulse 91 04/08/25 07:57 Resp 16 04/08/25 07:57 BP 151/78 04/08/25 07:57 Pulse Ox 97 04/08/25 07:57 FiO2 Intake & Output 04/07/25 04/08/25 04/08/25 18:59 06:59 18:59 Weight 93.44 kg
== END ==
LOC: WWCWWP 07:49
PROVIDERS: ATTEND Surgery
DX: N60.11 Diffuse cystic mastopathy of right breast (principal); N62 Hypertrophy of breast; M54.9 Dorsalgia, unspecified; D22.5 Melanocytic nevi of trunk; R92.8 Other abnormal and inconclusive findings on diagnostic imaging of breast; Z88.0 Allergy status to penicillin; Z88.1 Allergy status to other antibiotic agents

== ENCOUNTER → 2025-04-13 | Outpatient (CLI) | payer MEDICARE ==
--- NOTE | 2025-04-13 11:47 | P.PN ---
Subjective Progress Note Date: 04/13/25 The patient on 04 08 25 underwent excision of 2 nevi in the upper inner quadrants of both breasts. The sutures in the left breast came out. She comes in today for evaluation. The area is clean and granulating well. At this time I would not recommend any intervention for this. The other sutures are left intact. She will follow-up later this week. Pathology is pending. Objective - Vital Signs Vital signs: Intake & Output 04/12/25 04/13/25 04/13/25 18:59 06:59 18:59 Weight 93.44 kg
== END ==
LOC: WWCWWP 07:48
PROVIDERS: ATTEND Surgery
DX: D22.5 Melanocytic nevi of trunk (principal); Z88.0 Allergy status to penicillin

== ENCOUNTER → 2025-06-10 | Outpatient (CLI) | payer MEDICARE ==
[2025-06-10 08:51] VITALS: BP 175/93; PULSE 66; RESP 16; TEMP 98.7
--- NOTE | 2025-06-10 09:10 | P.PCN ---
Date of Procedure: 06/10/25 Preoperative Diagnosis: Nevus left breast first which was dysplastic resected and 5 8 25 and recommended for reexcision Postoperative Diagnosis: Same Procedure(s) Performed: Wide reexcision nevus left breast/2.5 cm Anesthesia: local Surgeon: Chey Schultz Pathology: other (Left breast nevus site removed) Condition: stable Disposition: same day Indications for Procedure: Left breast dysplastic nevus with margin status positive Description of Procedure: Following informed consent the area of concern in the left breast was prepped using chlorhexidine. 1% lidocaine was used to anesthetize the area of concern. Wide excision of the area was performed. The area excised was 2.5 cm. The specimen was sent to pathology. The deep tissues were closed using 3-0 Vicryl suture. The skin was closed using 3-0 nylon suture. The patient tolerated the procedure in stable condition. All instrument and sponge counts were correct at the end of the case. Patient will follow-up in 2 weeks Patient to follow-up sooner any questions or concerns
== END ==
LOC: WWCWWP 07:52
PROVIDERS: ATTEND Surgery
DX: D22.5 Melanocytic nevi of trunk (principal); Z88.0 Allergy status to penicillin

== ENCOUNTER → 2025-06-25 | Outpatient (CLI) | payer MEDICARE ==
--- NOTE | 2025-06-25 09:48 | P.BCPO ---
Progress Note - Text Progress Note Date: 06/25/25 Jose David is status post re-excision of dysplastic nevis margins on 06-10-25. New margins no residual lesion. She is doing well. Physical examination: Lungs: Clear Heart: Regular rate and rhythm Incision left breast clean and dry Impression: Patient doing well Plan: Bilateral mammogram in December 2025 with appointment at that time Patient to follow-up sooner any questions or concerns CC: Dr. Ric Hernandez
[2025-06-25 09:57] VITALS: BP 154/88; PULSE 86; RESP 17; TEMP 97.9
== END ==
LOC: WWCWWP 08:57
PROVIDERS: ATTEND Surgery
DX: Z48.89 Encounter for other specified surgical aftercare (principal); Z98.890 Other specified postprocedural states; Z88.0 Allergy status to penicillin